=== PATIENT | female | born 1965 | race African-American/Black ===

== ENCOUNTER → 2016-07-21 | Day surgery (SDC) | payer OTHER ==
[~2016-07-21] MED LIST: ALBU6.7H INH; AMOX500C PO; BACL10TA PO; BACT2OIN TOP; BETA0.1L TOP; BUPIVACAINE HCL PF 0.75% 30 ML VIAL ONE; CALTTAB2 PO; CENTTAB9 PO; CIME300T PO; CREO1200 OR; EPINEPHrine HCL (1:1000) 1 MG/ML VIAL OTHER ONE; ERGO50000 PO; ESTR1TAB PO; FLUC200T63 PO; HYDR-3535 PO; IBUP-238 PO; LACTATED RINGER'S 1000 ML INJ 1,000 ML ONE; LIDOCAINE 1.5%/EPINEPHrine 1:200,000 PF SOLN 30 ML AMP ONE; MIDAZOLAM HCL 5 MG/ML VIAL (1 ML) ONE; MORP1INJ45 PO; PROPOFOL 200 MG/20 ML AMP IV ONE; SODIUM CHLORIDE 0.9% 100 ML ADDBAG IV ONE; [UNRECOGNIZED DRUG - CODE] OU; ceFAZolin INJ 1,000 MG VIAL ONE
--- NOTE | 2016-07-21 13:10 | MP ---
cc: BENJI POOLE M.D. DATE OF SURGERY: 07/21/2016 PREOPERATIVE DIAGNOSIS: 1. Right shoulder rotator cuff tendon tear. 2. Right shoulder impingement syndrome. POSTOPERATIVE DIAGNOSES: 1. Right shoulder rotator cuff tendon tear. 2. Right shoulder impingement syndrome. OPERATIVE PROCEDURE PERFORMED: 1. Right shoulder arthroscopic rotator cuff repair. 2. Right shoulder arthroscopic subacromial decompression. SURGEON: Dr. Benji Poole. DRY ICE MACHINE OPERATOR: Jet Waters ANESTHESIA: General with a scalene block. ESTIMATED BLOOD LOSS: Less than 50 mL COMPLICATIONS: None. IMPLANTS USED: Arthrex. JUSTIFICATION FOR THE PROCEDURE: This patient is a 51-year-old female who injured the right shoulder. She has had progressive pain and weakness in regards to her condition. She has failed conservative treatment. Clinical exam as well as MRI confirmed the above-named findings. The patient was counselled as to the risks, benefits and alternatives to the above-named proposed surgical procedure and did wish to proceed with surgery. The patient was counselled as to the risks, benefits, and alternatives to the above-named proposed surgical procedure and she did wish to proceed with surgery. DESCRIPTION OF THE PROCEDURE IN DETAIL: Written consent was obtained. The patient was identified by name. A scalene block anesthesia was administered to the right upper extremity by the anesthesiologist. The patient taken to the operating room and general anesthesia was administered as well 2 grams of IV Ancef. The patient was carefully turned to her left lateral decubitus position. a lateral arm roll was placed. All bony prominences and pressure points were well padded. The patient's neck position was carefully monitored and kept neutral. An arthroscopic arm vargas was then applied to the right upper extremity with 7 pounds of traction placed. The right shoulder was prepped and draped in the usual sterile fashion isopropyl alcohol, Hibiclens solution and DuraPrep solution. Posterior and anterior glenohumeral arthroscope portals were established. The glenohumeral joint revealed minimal chondromalacia and labral tearing. There was evidence of a full-thickness severe degenerative tear along the attachment site of the supraspinatus tendon. This was debrided with an arthroscopic shaver. Attention was turned to the subacromial space where an Arthrex shaver was introduced from the lateral portal. A subacromial decompression was performed. The shaver was used to perform a bursectomy. The bur was used to perform an acromioplasty. The cautery device was used to release the coracoacromial ligament. The bur was used to decorticate the greater tuberosity in preparation of rotator cuff tendon repair. An Arthrex scorpion device was used to shuttle a #2 FiberWire suture to the anterior and posterior leaflets of the tendon and a convergence suture repair was performed with an arthroscopic sliding knot. Subsequently the Arthrex Scorpion device was used to shuttle a #2 FiberLink suture through the anterior and posterior portions. All four suture limbs were placed through the eyelet of the Arthrex 4.75 mm Bio SwiveLock anchor. The anchor was inserted into the greater tuberosity after appropriate tensioning of sutures. There was good purchase and fixation. The rotator cuff tendon repair was probed and noted to have good stability after repair. At the conclusion of the surgical procedure, the arthroscopic portals were closed with 3-0 Prolene suture. Sterile dressing was applied. The patient was placed in a sling and swath immobilizer. The patient tolerated the procedure well with no intraoperative complications noted. NOTE Jonatan Bach, physician assistant restaurant general manager-certified, was present during the entire procedure to include patient positioning and the procedure itself. The medical necessity of a physician assistant restaurant general manager was indicated in this case due to the complexity of the procedure itself. He assisted with appropriate manipulation of the arm and also manipulation of the camera. He assisted with both passage of sutures and implantation of the suture anchor for the purposes of the rotator cuff tendon repair. MD DEEPAK Guzman/DORIS /11:38 AM /1:01 PM
== END | disposition home or self-care (01) ==
LOC: ESDC 09:04
PROVIDERS: ATTEND Orthopaedic Surgery Sports Medicine
DX: M75.121 Complete rotator cuff tear or rupture of right shoulder, not specified as traumatic (principal); M75.41 Impingement syndrome of right shoulder
CPT/HCPCS: 01630; 01991; 29826; 29827; 64417; C1713; J0171; J0690; J2250; J7120

== ENCOUNTER 2018-09-11 10:17 | Observation (INO) ==
--- NOTE | 2018-09-11 13:26 | ED ---
HPI General Chief Complaint: Chest Pain Stated Complaint: chest pain/sent Dr Weeks Time Seen by Provider: 09/11/18 13:13 Source: patient and RN notes reviewed Mode of arrival: ambulatory Limitations: no limitations History of Present Illness HPI narrative: 53-year-old female presents to the emergency department sent by her primary care physician for evaluation of intermittent chest pain since Sunday. Patient states the chest pain started on Sunday when she was upset. She states that the midsternal and left chest that radiates to the left shoulder , left arm, left upper back. She states has been intermittent since Sunday, lasts for a few minutes and then will go away. She denies any chest pain at this time. She states she gets shortness of breath with her chest pain. She denies any headache. She states she has sharp pain in her upper abdomen earlier , but has no pain now. She reports nausea earlier, but none now. No vomiting or diarrhea. She went to her primary care doctor today and notified her this chest pain was sent to the emergency department for evaluation. Patient has history of reflux, chronic pain, asthma. She is not on anticoagulants and has no bleeding disorders. Moderate severity. MD complaint: Reports chest pain STEMI Alert: No Onset (ago): day(s) (5) Duration: intermittent Onset: during rest Pain location: Reports substernal and left chest Severity: moderate Quality: Reports aching Pain radiation: Reports LUE and back Relieving factors: nothing Exacerbating factors: nothing Associated symptoms: Reports nausea (Now resolved) and dyspnea (With chest pain , none now); Denies vomiting, diaphoresis, sense of impending doom, syncope, palpitations, fever, cough and leg swelling Treatments prior to arrival chest pain: Reports none Related Data Home Medications Medication Instructions Recorded Confirmed acetaminophen [Tylenol Arthritis 1 tab PO Q6HR 09/11/18 09/11/18 Pain] albuterol sulfate [Ventolin HFA] 2 puff INHALATION Q4-6H PRN 09/11/18 09/11/18 amitriptyline 50 mg PO HS 09/11/18 09/11/18 betamethasone valerate 1 applic TOPICAL BID 09/11/18 09/11/18 [id number]-erducqqlndohq-roxf 1 cap PO Q8H PRN MDD 3 09/11/18 09/11/18 calcium carbonate [Calcium 600] 1 tab PO DAILY 09/11/18 09/11/18 diazepam 10 mg PO DIRECTED PRN 09/11/18 09/11/18 ergocalciferol (vitamin D2) 50,000 unit PO QWEEK 09/11/18 09/11/18 [Vitamin D2] fluticasone 1 spray INTRANASAL DAILY 09/11/18 09/11/18 hydrocodone-acetaminophen 2 tab PO Q6H PRN MDD 8 09/11/18 09/11/18 lactulose 20 g PO BID 09/11/18 09/11/18 magnesium citrate 100 mg PO TID 09/11/18 09/11/18 multivitamin 1 tab PO DAILY 09/11/18 09/11/18 ondansetron 4 mg PO TID 09/11/18 09/11/18 ranitidine HCl 150 mg PO BID 09/11/18 09/11/18 timolol [Betimol] 1 drp OPHTHALMIC (EYE) BID 09/11/18 09/11/18 Allergies Allergy/AdvReac Type Severity Reaction Status Date / Time acetaminophen AdvReac Itching Verified 09/11/18 13:31 [From Darvocet-N] alendronate sodium AdvReac Bone Verified 09/11/18 13:31 [From Fosamax] Marrow Suppression bupropion [From Wellbutrin] AdvReac Irritabilit Verified 09/11/18 13:31 y/Anxiety gabapentin [From Neurontin] AdvReac Rash Verified 09/11/18 13:31 levocetirizine [From Xyzal] AdvReac Itching Verified 09/11/18 13:31 propoxyphene AdvReac Itching Verified 09/11/18 13:31 [From Darvocet-N] Review of Systems ROS: all other systems reviewed are negative [facility] Medical History Medical History Asthma (Acute) Social History Social History Substance History: No History of Abuse Smoking Status: Former smoker How Often Do You Have a Drink Containing Alcohol: Never Recent Travel in [facility] within the Last 8 Weeks: No Recent Out of Country Travel within the Last 8 Weeks: No Immunization History Tetanus Immunization: <5 Years Exam Narrative Exam Narrative: GENERAL: Well-nourished, well-developed female patient, afebrile SKIN: Focused skin assessment warm/dry. HEAD: Normocephalic. Atraumatic EYES: No scleral icterus. No injection or drainage. NECK: Supple, trachea midline. No JVD or lymphadenopathy. CARDIOVASCULAR: Regular rate and rhythm without murmurs, gallops, or rubs. Bilateral radial and pedal pulses are 2+ RESPIRATORY: Breath sounds equal bilaterally. No accessory muscle use. Lung sounds are clear to auscultation GASTROINTESTINAL: Abdomen soft, non-tender, nondistended. MUSCULOSKELETAL: No cyanosis, or edema. BACK: Nontender without obvious deformity. No CVA tenderness. Course Initial Documented Vital Signs Temperature 98.4 F 09/11/18 10:36 Pulse Rate 75 09/11/18 10:36 Respiratory Rate 19 09/11/18 10:36 Blood Pressure 158/85 H 09/11/18 10:36 Pulse Oximetry 99 09/11/18 10:36 Last Documented Vital Signs Temperature 98.4 F 09/11/18 10:36 Pulse Rate 94 H 09/11/18 13:13 Respiratory Rate 16 09/11/18 13:13 Blood Pressure 151/75 H 09/11/18 13:13 Pulse Oximetry 98 09/11/18 13:13 Medical Decision Making SAHIL Attestation SAHIL supervised visit: Yes Attestation: I, Dr. Westfall, have reviewed the advance practice practitioner' s documentation and am in agreement, met with the patient face to face, made the diagnosis, and the medical decision making was done by me. *My assessment and Findings: 53-year-old female presents for evaluation of intermittent chest pain for 5 days. EKG without ischemic changes and troponin negative x1. Will admit patient to chest pain center for further evaluation. [facility] Narrative Medical decision making narrative: 53 year old female presents to the emergency department for evaluation of EKG, CBC, CMP, Magnesium, CK, Troponin, Lipase, PTT , PT/INR, Chest x-ray are ordered and pending. Patient is given ASA 162 mg PO. CBC shows no acute abnormality. CMP shows slight hypokalemia of 3.3. Magnesium is 2.0. CK is 117. Troponin is less than 0.02. Lipase is 44. PTT is 27.5. PT/INR is 10.6/1.0. Chest x-ray shows No acute cardiopulmonary disease; Degenerative changes and scoliosis of the thoracolumbar spine. Patient will be admitted to the [facility] for further evaluation of chest pain. Medical Screen Exam Complete: Yes Emergency Medical Condition: Yes Differential Diagnosis Differential Diagnosis: ACS vs. anxiety vs. chest wall pain vs. pneumothorax vs. pneumonia vs. PE Medical Records Medical records reviewed: Yes I reviewed the patient's medical records. Lab Data Result diagrams: 09/11/18 13:31 09/11/18 13:31 Lab Results 09/11/18 09/11/18 09/11/18 Range/Units 13:31 13:31 13:31 WBC 6.0 (4.0-11.0) th/mm3 RBC 4.61 (4.00-5.30) mil/mm3 Hgb 13.2 (11.6-15.3) gm/dL Hct 39.5 (35.0-46.0) % MCV 85.8 (80.0-100.0) fL MCH 28.6 (27.0-34.0) pg MCHC 33.4 (32.0-36.0) % RDW 13.1 (11.6-17.2) % Plt Count 316 (150-450) th/mm3 MPV 7.6 (7.0-11.0) fL Neut % (Auto) 36.0 (16.0-70.0) % Lymph % (Auto) 53.2 H (9.0-44.0) % [place] % (Auto) 6.6 (0.0-8.0) % Eos % (Auto) 3.0 (0.0-4.0) % Baso % (Auto) 1.2 (0.0-2.0) % Neut # (Auto) 2.2 (1.8-7.7) th/mm3 Lymph # (Auto) 3.2 (1.0-4.8) th/mm3 [place] # (Auto) 0.4 (0.0-0.9) th/mm3 Eos # (Auto) 0.2 (0.0-0.4) th/mm3 Baso # (Auto) 0.1 (0.0-0.2) th/mm3 WBC Differential . Differential Comment Auto diff final PT 10.6 (9.8-11.6) sec INR 1.0 Ratio APTT 27.5 (23.4-31.7) sec Sodium 139 (136-145) meq/L Potassium 3.3 L (3.5-5.1) meq/L Chloride 104 (98-107) meq/L Carbon Dioxide 26.3 (21.0-32.0) meq/L Anion Gap 9 (5-15) meq/L BUN 6 L (7-18) mg/dL Creatinine 0.61 (0.50-1.00) mg/dL Estimated GFR Greater than 89 (>89) mL/min Random Glucose 77 (74-106) mg/dL Calcium 8.2 L (8.5-10.1) mg/dL Magnesium (1.5-2.5) mg/dL Total Bilirubin 0.6 (0.2-1.0) mg/dL AST 19 (15-37) U/L ALT 20 (10-53) U/L Alkaline Phosphatase 89 (45-117) U/L Total Creatine Kinase 117 (26-192) U/L CK-MB (CK-2) 1.5 (0.5-3.6) ng/mL Troponin I Less than 0.02 L (0.02-0.05) ng/mL Total Protein 7.9 (6.4-8.2) g/dL Albumin 4.1 (3.4-5.0) g/dL Lipase 44 L (73-393) U/L 09/11/18 Range/Units 13:31 WBC (4.0-11.0) th/mm3 RBC (4.00-5.30) mil/mm3 Hgb (11.6-15.3) gm/dL Hct (35.0-46.0) % MCV (80.0-100.0) fL MCH (27.0-34.0) pg MCHC (32.0-36.0) % RDW (11.6-17.2) % Plt Count (150-450) th/mm3 MPV (7.0-11.0) fL Neut % (Auto) (16.0-70.0) % Lymph % (Auto) (9.0-44.0) % [place] % (Auto) (0.0-8.0) % Eos % (Auto) (0.0-4.0) % Baso % (Auto) (0.0-2.0) % Neut # (Auto) (1.8-7.7) th/mm3 Lymph # (Auto) (1.0-4.8) th/mm3 [place] # (Auto) (0.0-0.9) th/mm3 Eos # (Auto) (0.0-0.4) th/mm3 Baso # (Auto) (0.0-0.2) th/mm3 WBC Differential Differential Comment PT (9.8-11.6) sec INR Ratio APTT (23.4-31.7) sec Sodium (136-145) meq/L Potassium (3.5-5.1) meq/L Chloride (98-107) meq/L Carbon Dioxide (21.0-32.0) meq/L Anion Gap (5-15) meq/L BUN (7-18) mg/dL Creatinine (0.50-1.00) mg/dL Estimated GFR (>89) mL/min Random Glucose (74-106) mg/dL Calcium (8.5-10.1) mg/dL Magnesium 2.0 (1.5-2.5) mg/dL Total Bilirubin (0.2-1.0) mg/dL AST (15-37) U/L ALT (10-53) U/L Alkaline Phosphatase (45-117) U/L Total Creatine Kinase (26-192) U/L CK-MB (CK-2) (0.5-3.6) ng/mL Troponin I (0.02-0.05) ng/mL Total Protein (6.4-8.2) g/dL Albumin (3.4-5.0) g/dL Lipase (73-393) U/L Imaging Data Radiologist's impression: Chest X-Ray 09/11/18 13:21 CONCLUSION: 1. No acute cardiopulmonary disease. 2. Degenerative changes and scoliosis of the thoracolumbar spine. Discharge Plan Discharge Disposition Patient Disposition: ED Admit(ED Internal Use Only) Discharge Order Discharge Orders: ED Use Only Admit Order (Routine); Ordered 09/11/18 Ordered By: Monica Evans Discharge Details Diagnosis: Chest pain Physicians Team ED Provider: Carmela Westfall ED Midlevel Provider: Monica Evans Primary Care Provider: UNKNOWN, Attending Provider: Shaq Wilkinson Status ED Status: Admitted Observation Patient
--- NOTE | 2018-09-11 13:54 | XR ---
EXAM DATE: 09/11/2018 1:51 PM EST AGE/SEX: 53 years / Female INDICATIONS: Chest pain. CLINICAL DATA: This is the patient's initial encounter. Patient reports that signs and symptoms have been present for 4 - 6 days and indicates a pain score of 5/10. MEDICAL/SURGICAL HISTORY: . asthma None. COMPARISON: No prior exams available for comparison. FINDINGS: A single AP view of the chest demonstrates the lungs to be symmetrically aerated without evidence of mass, infiltrate or effusion. The cardiomediastinal contours are unremarkable. Degenerative changes and scoliosis of the thoracolumbar spine are noted. CONCLUSION: 1. No acute cardiopulmonary disease. 2. Degenerative changes and scoliosis of the thoracolumbar spine. Electronically signed by: Jonny Mckeon MD Board Certified Radiologist 09/11/2018 1:52 PM EST
[2018-09-11 15:29] LABS: Baso # (Auto) 0.1 th/mm3 (0.0-0.2); Baso % (Auto) 1.2 % (0.0-2.0); Eos # (Auto) 0.2 th/mm3 (0.0-0.4); Hematocrit 39.5 % (35.0-46.0); Hemoglobin 13.2 gm/dL (11.6-15.3); Lymph # (Auto) 3.2 th/mm3 (1.0-4.8); Lymph % (Auto) 53.2 % (9.0-44.0); Mean Corpuscular HGB Conc 33.4 % (32.0-36.0); Mean Corpuscular Hemoglobin 28.6 pg (27.0-34.0); Mean Corpuscular Volume 85.8 fL (80.0-100.0); Mean Platelet Volume 7.6 fL (7.0-11.0); Mono # (Auto) 0.4 th/mm3 (0.0-0.9); Mono % (Auto) 6.6 % (0.0-8.0); Neut # (Auto) 2.2 th/mm3 (1.8-7.7); Platelet Count 316 th/mm3 (150-450); Red Blood Count 4.61 mil/mm3 (4.00-5.30); Red Cell Distribution Width 13.1 % (11.6-17.2)
[2018-09-11 15:41] LABS: Activated Partial Thrombo Time 27.5 sec (23.4-31.7); Prothrombin Time 10.6 sec (9.8-11.6)
[2018-09-11 15:44] LABS: Alanine Aminotransferase 20 U/L (10-53); Albumin 4.1 g/dL (3.4-5.0); Anion Gap 9 meq/L (5-15); Aspartate Aminotransferase 19 U/L (15-37); Blood Urea Nitrogen 6 mg/dL (7-18); Calcium 8.2 mg/dL (8.5-10.1); Carbon Dioxide 26.3 meq/L (21.0-32.0); Chloride 104 meq/L (98-107); Glomerular Filtration Rate Greater Than 89 mL/min (>89); Glucose,Random 77 mg/dL (74-106); Lipase 44 U/L (73-393); Potassium 3.3 meq/L (3.5-5.1); Sodium 139 meq/L (136-145)
[2018-09-11 15:49] LABS: Alkaline Phosphatase 89 U/L (45-117); Creatine Kinase 117 U/L (26-192); Total Protein 7.9 g/dL (6.4-8.2)
[2018-09-11 16:01] LABS: Creatine Kinase MB 1.5 ng/mL (0.5-3.6)
--- NOTE | 2018-09-11 17:22 | P.HPCA ---
History of Present Illness Chief Complaint: Chest pain History of Present Illness: 53 year old female with history of GERD, asthma, and multiple orthopedic issues presents to ER for further evaluation of intermittent chest pain. Onset Sunday evening. Location left anterior chest. Characterized as severe, sharp pain. Radiates to left arm/left shoulder. Duration few minutes, varies between 1-8 minutes. Hurts to take a deep breath when experiencing in the discomfort, otherwise does not hurt to take a deep breath. No associated nausea, vomiting, dyspnea, diaphoresis. No precipitating or relieving factors. No recent illness or injury. Denies similar pain in the past. Past cardiac testing None Social history No known tension, hyperlipidemia, or diabetes. Lifelong non-smoker. No alcohol use. Endorses active lifestyle which has been decreased within the last month due to right hip pain. Scheduled for right hip surgery. Family history Noncontributory for early onset cardiovascular disease. - Diagnosis (1) Atypical chest pain (2) Hypokalemia Review of Systems All other systems reviewed negative except as stated in HPI PMFSH - History History Provided By: Patient - Medical History Medical History: Medical History (Last Updated 09/11/18 @ 18:02 by NAMRATA Cheung) Asthma Right hip pain Scoliosis - Family History Family History: Family History (Last Updated 09/11/18 @ 18:03 by NAMRATA Cheung) Mother Hypertension Pacemaker Father COPD (chronic obstructive pulmonary disease) Hypertension - Tobacco History Smoking Status: Former smoker - Alcohol History How Often Do You Have a Drink Containing Alcohol: Never - Substance Use History Substance History: No History of Abuse - Travel History Recent Travel in the [place] Within the Last 8 Weeks: No Recent Travel Out of the Country Within the Last 8 Weeks: No - Immunization History Tetanus Immunization: <5 Years Medications and Allergies Active Medications: Active Medications Sodium Chloride (Ns Flush) 2 ml IV.FLUSH UNSCH PRN PRN Reason: FLUSH AFTER USING IV ACCESS Sodium Chloride (Ns Flush) 2 ml IV.FLUSH BID BRUCE Sodium Chloride (Ns Flush) 2 ml IV.FLUSH PRN PRN PRN Reason: FLUSH AFTER USING IV ACCESS Allergies Allergy/AdvReac Type Severity Reaction Status Date / Time acetaminophen AdvReac Itching Verified 09/11/18 13:31 [From Miky-Moe] alendronate sodium AdvReac Bone Verified 09/11/18 13:31 [From Fosamax] Marrow Suppression bupropion [From Wellbutrin] AdvReac Irritabilit Verified 09/11/18 13:31 y/Anxiety gabapentin [From Neurontin] AdvReac Rash Verified 09/11/18 13:31 levocetirizine [From Xyzal] AdvReac Itching Verified 09/11/18 13:31 propoxyphene AdvReac Itching Verified 09/11/18 13:31 [From Darvocet-N] Home Medications Medication Instructions Recorded Confirmed Type acetaminophen [Tylenol Arthritis 1 tab PO Q6HR 09/11/18 09/11/18 History Pain] albuterol sulfate [Ventolin HFA] 2 puff INHALATION Q4-6H PRN 09/11/18 09/11/18 History amitriptyline 50 mg PO HS 09/11/18 09/11/18 History betamethasone valerate 1 applic TOPICAL BID 09/11/18 09/11/18 History dwhxyvwykg-nbisbtcdyxbsn-djff 1 cap PO Q8H PRN MDD 3 09/11/18 09/11/18 History calcium carbonate [Calcium 600] 1 tab PO DAILY 09/11/18 09/11/18 History diazepam 10 mg PO DIRECTED PRN 09/11/18 09/11/18 History ergocalciferol (vitamin D2) 50,000 unit PO QWEEK 09/11/18 09/11/18 History [Vitamin D2] fluticasone 1 spray INTRANASAL DAILY 09/11/18 09/11/18 History hydrocodone-acetaminophen 2 tab PO Q6H PRN MDD 8 09/11/18 09/11/18 History lactulose 20 g PO BID 09/11/18 09/11/18 History magnesium citrate 100 mg PO TID 09/11/18 09/11/18 History multivitamin 1 tab PO DAILY 09/11/18 09/11/18 History ondansetron 4 mg PO TID 09/11/18 09/11/18 History ranitidine HCl 150 mg PO BID 09/11/18 09/11/18 History timolol [Betimol] 1 drp OPHTHALMIC (EYE) BID 09/11/18 09/11/18 History Exam Vital signs: Vital Signs 09/11/18 10:36 09/11/18 13:13 09/11/18 16:38 Temperature 98.4 F Pulse Rate 75 94 H Respiratory Rate 19 16 23 Blood Pressure 158/85 H 151/75 H Pulse Oximetry 99 98 09/11/18 16:40 Temperature Pulse Rate 92 H Respiratory Rate 23 Blood Pressure 132/80 Pulse Oximetry 100 Intake & Output 09/10/18 09/11/18 09/11/18 18:59 06:59 18:59 Weight 68.492 kg Narrative: GENERAL: Alert WN, WD, NAD, pleasant, -[place] female HEAD: NC, AT EYES: Sclera clear, conjunctiva without injection, pupils equal and round ENT: Mucous membranes pink and moist NECK: Supple, no masses, trachea midline CV: RRR, without murmur, rub, gallop. Chest wall nontender to palpation RESP: Clear lungs throughout bilateral, no crackles, wheeze, rhonchi, symmetrical chest rise, nonlabored, able to speak in full sentences ABD: Soft, NT, ND, no masses, positive bowel tones BACK: Scoliosis EXT: Pulses +2x4, no dependent edema MS: Normal tone x4 extremities, nontender, no obvious deformities, full range of motion NEURO: Motor strength 5/5 PSYCH: A+O x3, pleasant affect, appropriate speech, mood, insight and judgment SKIN: Normal turgor, normal texture Results 09/11/18 13:31 09/11/18 13:31 Cardiac Enzymes 09/11/18 Range/Units 13:31 AST 19 (15-37) U/L CK-MB (CK-2) 1.5 (0.5-3.6) ng/mL Troponin I Less than 0.02 L (0.02-0.05) ng/mL Coagulation 09/11/18 Range/Units 13:31 PT 10.6 (9.8-11.6) sec APTT 27.5 (23.4-31.7) sec CBC 09/11/18 Range/Units 13:31 WBC 6.0 (4.0-11.0) th/mm3 RBC 4.61 (4.00-5.30) mil/mm3 Hgb 13.2 (11.6-15.3) gm/dL Hct 39.5 (35.0-46.0) % Plt Count 316 (150-450) th/mm3 Neut # (Auto) 2.2 (1.8-7.7) th/mm3 Lymph # (Auto) 3.2 (1.0-4.8) th/mm3 [place] # (Auto) 0.4 (0.0-0.9) th/mm3 Eos # (Auto) 0.2 (0.0-0.4) th/mm3 Baso # (Auto) 0.1 (0.0-0.2) th/mm3 Comprehensive Metabolic Panel 09/11/18 Range/Units 13:31 Sodium 139 (136-145) meq/L Potassium 3.3 L (3.5-5.1) meq/L Chloride 104 (98-107) meq/L Carbon Dioxide 26.3 (21.0-32.0) meq/L BUN 6 L (7-18) mg/dL Creatinine 0.61 (0.50-1.00) mg/dL Calcium 8.2 L (8.5-10.1) mg/dL AST 19 (15-37) U/L ALT 20 (10-53) U/L Alkaline Phosphatase 89 (45-117) U/L Total Protein 7.9 (6.4-8.2) g/dL Albumin 4.1 (3.4-5.0) g/dL Intake and Output 09/11/18 09/11/18 09/11/18 06:59 14:59 22:59 Other: Weight 68.492 kg Patient Weight 09/12/18 06:59 Weight 68.492 kg - Imaging and Cardiology Imaging: Impressions Chest X-Ray 09/11/18 13:21 CONCLUSION: 1. No acute cardiopulmonary disease. 2. Degenerative changes and scoliosis of the thoracolumbar spine. EKG interpretations - EKG EKG results cardiology: sinus rhythm (Nonspecific T wave change) Caprini VTE Risk Assessment Caprini VTE Risk Assessment: No/Low Risk (score <= 1) Caprini Risk Assessment Model: Point Value = 1 Point Value = 2 Point Value = 3 Point Value = 5 Age 41-60 Minor surgery BMI > 25 kg/m2 Swollen legs Varicose veins or History of unexplained or recurrent spontaneous Oral contraceptives or hormone replacement Sepsis (< 1 month) Serious lung disease, including pneumonia (< 1 month) Abnormal pulmonary function Acute myocardial infarction Congestive heart failure (< 1 month) History of inflammatory bowel disease Medical patient at bed rest Age 61-74 Arthroscopic surgery Major open surgery (> 45 min) Laparoscopic surgery (> 45 min) Malignancy Confined to bed (> 72 hours) Immobilizing plaster cast Central venous access Age >= 75 History of VTE Family history of VTE Factor V Leiden Prothrombin [id number] Lupus anticoagulant Anticardiolipin antibodies Elevated serum homocysteine Heparin-induced thrombocytopenia Other congenital or acquired thrombophilia Stroke (< 1 month) Elective arthroplasty Hip, pelvis, or leg fracture Acute spinal cord injury (< 1 month) Prophylaxis Regimen: Total Risk Factor Score Risk Level Prophylaxis Regimen 0-1 Low Early ambulation 2 Moderate Order ONE of the following: *Sequential Compression Device (SCD) *Heparin 5000 units SQ BID 3-4 Higher Order ONE of the following medications: *Heparin 5000 units SQ TID *Enoxaparin/Lovenox 40 mg SQ daily (WT < 150 kg, CrCl > 30 mL/min) *Enoxaparin/Lovenox 30 mg SQ daily (WT < 150 kg, CrCl > 10-29 mL/min) *Enoxaparin/Lovenox 30 mg SQ BID (WT < 150 kg, CrCl > 30 mL/min) AND/OR *Sequential Compression Device (SCD) 5 or more Highest Order ONE of the following medications: *Heparin 5000 units SQ TID (Preferred with Epidurals) *Enoxaparin/Lovenox 40 mg SQ daily (WT < 150 kg, CrCl > 30 mL/min) *Enoxaparin/Lovenox 30 mg SQ daily (WT < 150 kg, CrCl > 10-29 mL/min) *Enoxaparin/Lovenox 30 mg SQ BID (WT < 150 kg, CrCl > 30 mL/min) AND *Sequential Compression Device (SCD) Assessment and Plan - Assessment (1) Atypical chest pain Code(s): R07.89 - Other chest pain Status: Acute Plan: Admitted chest pain center. Continue ruling out ACS with 3 sets of EKGs and cardiac enzymes. Seen and evaluated by Dr. Shaq Wilkinson. Monitor on telemetry overnight. If ACS ruled out, proceed with Lexiscan in morning. (2) Hypokalemia Code(s): E87.6 - Hypokalemia Status: Acute Plan: 20 mEq KCl given in ER.
[2018-09-11 18:11] LABS: Creatine Kinase 117 U/L (26-192)
[2018-09-11] MEDS ORDERED: Ketorolac Inj 30 MG/ML (IVP) Vial IV.PUSH ONE (18:16)
[2018-09-11 20:41] LABS: Creatine Kinase 123 U/L (26-192)
[2018-09-11] MEDS: Famotidine 20 MG Tablet PO SCH (20:57)
[2018-09-11] MEDS: Timolol 0.5% Drops 5 ML Bottle EACH EYE SCH (20:58)
[2018-09-12 05:26] VITALS: RESP 16
[2018-09-12] MEDS ORDERED: Regadenoson Inj 0.4 MG/5 ML Syringe IV.PUSH ONE (07:24)
[2018-09-12] MEDS: Calcium Carbonate 500 MG Tablet PO SCH ×2 (08:17→08:20)
[2018-09-12] MEDS: Famotidine 20 MG Tablet PO SCH (08:18)
[2018-09-12] MEDS: Timolol 0.5% Drops 5 ML Bottle EACH EYE SCH (08:18)
[2018-09-12 10:16] VITALS: PULSE 73
--- NOTE | 2018-09-12 11:25 | NM ---
EXAM DATE: 09/12/2018 11:18 AM EST AGE/SEX: 53 years / Female INDICATIONS:Angina. . Left sided chest pain for one week. CLINICAL DATA: This is the patient's initial encounter. Patient reports that signs and symptoms have been present for 1 week and indicates a pain score of 7/10. MEDICAL/SURGICAL HISTORY: Asthma. Gastroesophageal reflux disease. None. COMPARISON: No prior exams available for comparison. No external comparison. DOSE: 8.4 mCi Tc 99m Myoview at rest 25.3 mCi [id number] at stress 0.4 mg Lexiscan STRESS SYMPTOMS: Dyspnea and abdominal pressure. EJECTION FRACTION: >70 % TECHNIQUE: The patient underwent pharmacologic stress with infusion of prescribed dose. Continuous ECG tracing was monitored during stress. Gated SPECT imaging was performed after stress and conventi onal SPECT imaging was performed at rest. The examination was performed on a SPECT/CT scanner, both attenuation and non-corrected datasets were reviewed. FINDINGS: Distribution: The maximum perfused segment at stress is in the inferior wall. Perfusion Study: The pattern of perfusion at stress is within normal limits. Gated Study: There are intact wall motion and wall thickening without hypokinetic or dyskinetic segm ents. The ejection fraction is calculated at >70%. RISK CATEGORY: Low (<1% Annual Mortality Rate) CONCLUSION: 1. Negative examination. Electronically signed by: Emilio Goel MD Board Certified Radiologist 09/12/2018 11:24 AM EST
--- NOTE | 2018-09-12 12:14 | P.PNCA ---
Subjective Interval history: This 53-year-old lady was evaluated yesterday by Lorene Chi and Dr. Wilkinson. She ruled out for ACS by standard chest pain center protocol but had to be held overnight for a Lexiscan this morning. Her Lexiscan came back negative for ischemia this morning. This information was relayed to the patient who is greatly relieved and expressed her desire to be discharged as soon as possible. She is therefore discharged to follow-up with her primary care physician. Medications and Allergies Active Medications: Active Medications Hydrocodone Bitart/Acetaminophen ([place] 10/325) 1 tab PO Q6H PRN PRN Reason: PAIN SCALE 6 TO 10 Last Admin: 09/12/18 12:05 Dose: 1 tab Albuterol (Ventolin Hfa Inh) 2 puff INH Q6H PRN PRN Reason: SHORTNESS OF BREATH Albuterol (Albuterol Neb (Prn)) 2.5 mg NEB UNSCH PRN PRN Reason: SHORTNESS OF BREATH/WHEEZING Albuterol (Duoneb Neb (Prn)) 1 ampul NEB UNSCH PRN PRN Reason: SHORTNESS OF BREATH/WHEEZING Calcium Carbonate (Oscal) 1 mg PO DAILY ON LICENSE OF [facility] Last Admin: 09/12/18 08:20 Dose: Not Given Ergocalciferol (Vitamin D2) 50,000 unit PO Q7D ON LICENSE OF [facility] Last Admin: 09/12/18 08:17 Dose: 50,000 unit Famotidine (Pepcid) 20 mg PO BID ON LICENSE OF [facility] Last Admin: 09/12/18 08:18 Dose: 20 mg Multivitamins (Theragran) 1 tab PO DAILY ON LICENSE OF [facility] Last Admin: 09/12/18 08:18 Dose: 1 tab Sodium Chloride (Ns Flush) 2 ml IV.FLUSH UNSCH PRN PRN Reason: FLUSH AFTER USING IV ACCESS Sodium Chloride (Ns Flush) 2 ml IV.FLUSH BID ON LICENSE OF [facility] Last Admin: 09/12/18 08:18 Dose: 2 ml Sodium Chloride (Ns Flush) 2 ml IV.FLUSH PRN PRN PRN Reason: FLUSH AFTER USING IV ACCESS Timolol Maleate (Timoptic 0.5% Drops) 1 drops EACH EYE BID ON LICENSE OF [facility] Last Admin: 09/12/18 08:18 Dose: 1 drops Allergies Allergy/AdvReac Type Severity Reaction Status Date / Time acetaminophen AdvReac Itching Verified 09/11/18 13:31 [From Darvocet-N] alendronate sodium AdvReac Bone Verified 09/11/18 13:31 [From Fosamax] Marrow Suppression bupropion [From Wellbutrin] AdvReac Irritabilit Verified 09/11/18 13:31 y/Anxiety gabapentin [From Neurontin] AdvReac Rash Verified 09/11/18 13:31 levocetirizine [From Xyzal] AdvReac Itching Verified 09/11/18 13:31 propoxyphene AdvReac Itching Verified 09/11/18 13:31 [From Darvocet-N] Home Medications Medication Instructions Recorded Confirmed Type acetaminophen [Tylenol Arthritis 1 tab PO Q6HR 09/11/18 09/11/18 History Pain] albuterol sulfate [Ventolin HFA] 2 puff INHALATION Q4-6H PRN 09/11/18 09/11/18 History amitriptyline 50 mg PO HS 09/11/18 09/11/18 History betamethasone valerate 1 applic TOPICAL BID 09/11/18 09/11/18 History [id number] 1 cap PO Q8H PRN MDD 3 09/11/18 09/11/18 History calcium carbonate [Calcium 600] 1 tab PO DAILY 09/11/18 09/11/18 History diazepam 10 mg PO DIRECTED PRN 09/11/18 09/11/18 History ergocalciferol (vitamin D2) 50,000 unit PO QWEEK 09/11/18 09/11/18 History [Vitamin D2] fluticasone 1 spray INTRANASAL DAILY 09/11/18 09/11/18 History hydrocodone-acetaminophen 2 tab PO Q6H PRN MDD 8 09/11/18 09/11/18 History lactulose 20 g PO BID 09/11/18 09/11/18 History magnesium citrate 100 mg PO TID 09/11/18 09/11/18 History multivitamin 1 tab PO DAILY 09/11/18 09/11/18 History ondansetron 4 mg PO TID 09/11/18 09/11/18 History ranitidine HCl 150 mg PO BID 09/11/18 09/11/18 History timolol [Betimol] 1 drp OPHTHALMIC (EYE) BID 09/11/18 09/11/18 History Physical Exam Vital signs: Vital Signs 09/11/18 13:13 09/11/18 16:38 09/11/18 16:40 Temperature Pulse Rate 94 H 92 H Respiratory Rate 16 23 23 Blood Pressure 151/75 H 132/80 Pulse Oximetry 98 100 09/11/18 17:35 09/11/18 20:03 09/11/18 20:56 Temperature 98.6 F Pulse Rate 78 81 76 Respiratory Rate 16 16 Blood Pressure 129/70 136/69 Pulse Oximetry 98 09/11/18 23:42 09/11/18 23:59 09/12/18 00:03 Temperature 98.4 F Pulse Rate 81 80 Respiratory Rate 16 14 Blood Pressure 122/70 Pulse Oximetry 96 09/12/18 03:28 09/12/18 04:00 09/12/18 07:50 Temperature 97.7 F Pulse Rate 74 74 Respiratory Rate 16 Blood Pressure 116/67 Pulse Oximetry 98 97 09/12/18 08:00 Temperature 98.3 F Pulse Rate 73 Respiratory Rate 16 Blood Pressure 124/71 Pulse Oximetry 97 Intake & Output 09/11/18 09/12/18 09/12/18 18:59 06:59 18:59 Intake Total 240 / 240 240 / 240 Balance 240 / 240 240 / 240 Weight 68.492 kg Intake: Oral 240 / 240 240 / 240 Other: Weight On Admission 68.492 kg Results 09/11/18 13:31 09/11/18 13:31 Cardiac Enzymes 09/11/18 09/11/18 09/11/18 Range/Units 13:31 17:10 19:10 AST 19 (15-37) U/L CK-MB (CK-2) 1.5 (0.5-3.6) ng/mL Troponin I Less than 0.02 L Less than 0.02 L Less than 0.02 L (0.02-0.05) ng/mL Coagulation 09/11/18 Range/Units 13:31 PT 10.6 (9.8-11.6) sec APTT 27.5 (23.4-31.7) sec CBC 09/11/18 Range/Units 13:31 WBC 6.0 (4.0-11.0) th/mm3 RBC 4.61 (4.00-5.30) mil/mm3 Hgb 13.2 (11.6-15.3) gm/dL Hct 39.5 (35.0-46.0) % Plt Count 316 (150-450) th/mm3 Neut # (Auto) 2.2 (1.8-7.7) th/mm3 Lymph # (Auto) 3.2 (1.0-4.8) th/mm3 [place] # (Auto) 0.4 (0.0-0.9) th/mm3 Eos # (Auto) 0.2 (0.0-0.4) th/mm3 Baso # (Auto) 0.1 (0.0-0.2) th/mm3 Comprehensive Metabolic Panel 09/11/18 Range/Units 13:31 Sodium 139 (136-145) meq/L Potassium 3.3 L (3.5-5.1) meq/L Chloride 104 (98-107) meq/L Carbon Dioxide 26.3 (21.0-32.0) meq/L BUN 6 L (7-18) mg/dL Creatinine 0.61 (0.50-1.00) mg/dL Calcium 8.2 L (8.5-10.1) mg/dL AST 19 (15-37) U/L ALT 20 (10-53) U/L Alkaline Phosphatase 89 (45-117) U/L Total Protein 7.9 (6.4-8.2) g/dL Albumin 4.1 (3.4-5.0) g/dL Intake and Output 09/11/18 09/12/18 09/12/18 22:59 06:59 14:59 Intake Total 240 / 240 240 / 240 Balance 240 / 240 240 / 240 Intake: Oral 240 / 240 240 / 240 Other: Weight 68.492 kg Weight On Admission 68.492 kg - Imaging and Cardiology Imaging: Impressions Chest X-Ray 09/11/18 13:21 CONCLUSION: 1. No acute cardiopulmonary disease. 2. Degenerative changes and scoliosis of the thoracolumbar spine. Myocardial Perfusion Scan Nuc Med 09/12/18 07:24 CONCLUSION: 1. Negative examination. Assessment and Plan - Assessment (1) Atypical chest pain Code(s): R07.89 - Other chest pain Status: Acute Plan: Admitted chest pain center. Continue ruling out ACS with 3 sets of EKGs and cardiac enzymes. Seen and evaluated by Dr. Shaq Wilkinson. Monitor on telemetry overnight. If ACS ruled out, proceed with Lexiscan in morning. (2) Hypokalemia Code(s): E87.6 - Hypokalemia Status: Acute Plan: 20 mEq KCl given in ER.
--- NOTE | 2018-09-12 12:22 | ECG ---
Date Performed: 09/11/2018 Time Performed: 17:38:56 PTAGE: 53 years EKG: Sinus rhythm POSSIBLE LEFT ATRIAL ENLARGEMENT NONSPECIFIC T-WAVE ABNORMALITY BORDERLINE ECG No significant change PREVIOUS TRACING : 09/11/2018 12.14 DOCTOR: Juan David Mcrae Interpretating Date/Time 09/12/2018 12:20:26
--- NOTE | 2018-09-12 12:22 | ECG ---
Date Performed: 09/11/2018 Time Performed: 20:52:39 PTAGE: 53 years EKG: Sinus rhythm POSSIBLE LEFT ATRIAL ENLARGEMENT NONSPECIFIC T-WAVE ABNORMALITY persist but improved compared to igor or BORDERLINE ECG PREVIOUS TRACING : 09/11/2018 17.38 DOCTOR: Juan David Mcrae Interpretating Date/Time 09/12/2018 12:20:15
--- NOTE | 2018-09-12 12:24 | ECG ---
Date Performed: 09/11/2018 Time Performed: 12:14:30 PTAGE: 53 years EKG: Sinus rhythm POSSIBLE LEFT ATRIAL ENLARGEMENT NONSPECIFIC T-WAVE ABNORMALITY BORDERLINE ECG No significant change NO PREVIOUS TRACING DOCTOR: Juan David Mcrae Interpretating Date/Time 09/12/2018 12:21:42
--- NOTE | 2018-09-12 12:27 | TR ---
Date Performed: 09/12/2018 Time Performed: 10:30:20 DOCTOR: Juan David Mcrae DRUG LIST: CLINICAL HISTORY: REASON FOR TEST: CHEST PAIN REASON FOR ENDING: OBSERVATION: CONCLUSION: Lexiscan stress test was performed under standard four minute protocol. Radionuclide was injected one minute prior to ending the test. The EKG showed T wave changes that were not diagn ostic of ischemia. Nuclear imaging and interpretation are pending. COMMENTS:
[2018-09-12 12:39] VITALS: BP 138/75; TEMP 98.9; O2SAT 100
== END 2018-09-12 14:07 | disposition home or self-care (01) ==
LOC: NEPD 10:17 → NEDA 10:17 → NEPFCDU 16:51
PROVIDERS: ADMIT Internal Medicine Cardiovascular Disease; ATTEND Internal Medicine Cardiovascular Disease
CPT/HCPCS: 71010; 71045; 78452; 80053; 82550; 82552; 83690; 83735; 84484; 85025; 85610; 85730; 93005; 93017; 96374; 99285; A9502; G0378; J1885; J2785; Q9969